=== PATIENT | male | born 1995 | race Caucasian/White ===

== ENCOUNTER 2017-03-04 18:39 | Emergency (ER) | payer BC, OTHER ==
[2017-03-04 18:45] VITALS: TEMP 97.7
[2017-03-04] MEDS ORDERED: ACETAMINOPHEN 325 MG TAB PO ONE (19:05)
--- NOTE | 2017-03-04 19:11 | EDPHY ---
H & P Time Seen by Provider: 03/04/17 18:50 HPI/ROS: CHIEF COMPLAINT: Head injury HISTORY OF PRESENT ILLNESS: 3:15 p.m. today [place] hit his head on the rail. No helmet, no loss of consciousness, no seizure. He felt okay and was checked out by leather skinner but then in the car about 30 minutes later had trouble remembering the name of his friend and had some intermittent numbness in his hands. No neck or back pain and no weakness or numbness in extremities currently. No ataxia. His difficulty remembering the name of his friend lasted between 10 and 20 minutes. Currently has a 7/10 headache which is more a occipital where he hit his head. REVIEW OF SYSTEMS: Eye: no change in vision ENT: no sore throat Cardiac: no chest pain or syncope Pulmonary: no cough or SOB Abdomen: no vomiting, diarrhea, abdominal pain Musculoskeletal: no back pain Skin: Occipital scalp laceration Neuro: HPI Constitutional: no fever : no urinary symptoms A comprehensive 10 point review of systems is otherwise negative aside from elements mentioned in the history of present illness. PAST MEDICAL HISTORY: Negative Family history: Father has hemophilia, he says he has never been tested Social history: No alcohol, college student General Appearance: Alert and conversant, cooperative. Eyes: No scleral icterus. ENT, Mouth: Normal mucous membranes. No hemotympanum. Respiratory: Normal respiratory effort, breath sounds equal, lungs are clear to auscultation. Cardiovascular: Regular rate and rhythm. Gastrointestinal: Abdomen is soft and non tender. Neurological: Alert and oriented x3. Normally conversant. Face symmetric, normal movement and sensation in all extremities. Romberg negative, normal [id number] bilaterally and no pronator drift. Normal tandem gait. Skin: 1 cm left occipital scalp laceration. Musculoskeletal: No spinal tenderness. Psychiatric: Not agitated. Emergency Department course/MDM: Cervical spine cleared clinically. See procedure note for scalp laceration closure. Acetaminophen 650 mg for headache. The [address] scan discussed and consented for head injury with family history of hemophilia and severe headache. 1950: CT head per Fermín negative. Results discussed with the patient. Ibuprofen 600 mg. Mandatory primary care follow-up. Had an episode of nausea and vomiting just prior to discharge, treated successfully with Zofran ODT. Smoking Status: Former smoker Constitutional: Initial Vital Signs Temperature (C) 36.5 C 03/04/17 18:44 Heart Rate 56 L 03/04/17 18:44 Respiratory Rate 18 03/04/17 18:44 Blood Pressure 111/64 03/04/17 18:44 O2 Sat (%) 98 03/04/17 18:44 O2 Delivery Mode Room Air Allergies/Adverse Reactions: Sulfa (Sulfonamide Antibiotics) Allergy (Verified 03/01/15 01:34) ALL CILLINS Allergy (Uncoded 03/01/15 01:34) Home Medications: Medication Instructions Recorded NK [No Known Home Meds] 03/04/17 Medical Decision Making - Diagnostics Imaging Results: Imaging Impressions Head CT 03/04/17 19:05 Impression: Negative noncontrast CT of the head with no intracranial posttraumatic sequela identified. Results called and discussed with BRIANNA BAILEY M.D. on 03/04/2017 at 19:51 Procedures: Procedure: Laceration repair. Verbal consent was obtained from the patient. The 1 cm laceration on the scalp was anesthetized using 0.5% bupivacaine with epinephrine. The wound was irrigated with standard emergency department protocol, draped and explored. There were no deep structures involved. No foreign body found. The wound was repaired with zaira. The wound repair was simple. Excellent hemostasis was obtained. Wound care instructions were discussed and the patient was warned regarding scarring. The procedure was performed by myself. Differential Diagnosis: Differential diagnosis considered for head injury including but not limited to concussion, skull fracture, intraparenchymal contusion, subarachnoid, subdural and epidural hematoma. - Data Points Medications Given: Discontinued Medications Acetaminophen (Tylenol) 650 mg PO EDNOW ONE Stop: 03/04/17 19:06 Last Admin: 03/04/17 19:23 Dose: 650 mg Ibuprofen (Motrin) 600 mg PO EDNOW ONE Stop: 03/04/17 19:52 Last Admin: 03/04/17 20:00 Dose: 600 mg Ondansetron HCl (Zofran Odt) 4 mg PO EDNOW ONE Stop: 03/04/17 19:59 Last Admin: 03/04/17 20:00 Dose: 4 mg Ondansetron HCl (Zofran Odt 4 Mg Prepack#2) 1 btl TAKEHOME EDNOW ONE Stop: 03/04/17 19:59 Last Admin: 03/04/17 20:00 Dose: 1 btl Departure - Departure Disposition: Home, Routine, Self-Care Clinical Impression: Concussion Qualifiers: Encounter type: initial encounter Loss of consciousness presence/duration: without LOC Qualified Code(s): S06.0X0A - Concussion without loss of consciousness, initial encounter Scalp laceration Qualifiers: Encounter type: initial encounter Qualified Code(s): S01.01XA - Laceration without foreign body of scalp, initial encounter Condition: Good Instructions: Ondansetron (By mouth), Laceration (ED), Concussion (ED) Additional Instructions: Wound Care Follow-Up: Removal of sutures/zaira in 7 days. Suture removal is complimentary in uncomplicated cases. Infection or abnormal findings would require reevaluation by the MD. In that case, you may be billed. Normal head CT. Since you likely have a concussion, no skiing or cycling or other potentially contact sports until your symptoms have completely resolved, you been cleared for full activity by follow-up referral physician. Referrals: Jeimy Bennett MD [Medical Doctor] - 5-7 days, call for appt. (Please follow-up this week with referral primary care physician. No skiing or mountain biking or other potentially contact sports activities until cleared for full activity by follow-up physician. Ask her about being tested for hemophilia.)
[2017-03-04] MEDS ORDERED: IBUPROFEN 600 MG TAB PO ONE (19:51)
[2017-03-04] MEDS ORDERED: ONDANSETRON DISINTEGRATING 4 MG TAB PO ONE (19:58)
[2017-03-04] MEDS ORDERED: ONDANSETRON 4MG PREPACK#2 BTL TAKEHOME ONE (19:58)
[2017-03-04 20:07] VITALS: BP 115/74; PULSE 67; RESP 16; O2SAT 95
== END 2017-03-04 20:07 | disposition home or self-care (01) ==
DX: S06.0X0A Concussion without loss of consciousness, initial encounter (principal); S01.01XA Laceration without foreign body of scalp, initial encounter; Z87.891 Personal history of nicotine dependence; W01.198A Fall on same level from slipping, tripping and stumbling with subsequent striking against other object, initial encounter; Y92.838 Other recreation area as the place of occurrence of the external cause; Y99.8 Other external cause status; Y93.89 Activity, other specified

== ENCOUNTER 2017-07-02 00:53 | Emergency (ER) | payer OTHER ==
[2017-07-02 00:57] VITALS: PULSE 64
[2017-07-02] MEDS ORDERED: ONDANSETRON 4 MG/2 ML VIAL IVP ONE (00:57)
[2017-07-02] MEDS ORDERED: HYDROmorphONE/DILAUDID 1 MG/ML INJ IVP ONE (00:57)
[2017-07-02] MEDS ORDERED: NS 1,000 ML IV ONE (00:57)
--- NOTE | 2017-07-02 00:58 | EDPHY ---
H & P Stated Complaint: abd pain HPI/ROS: JOSY YEPEZ HPI CHIEF COMPLAINT abdominal pain HISTORY OF PRESENT ILLNESS This patient very pleasant 21-year-old male, otherwise healthy remote history of seizures, presents emergency room with right lower quadrant periumbilical abdominal pain. States this started around 2 -3 hours ago. It has been constant. Denies any back pain or urinary symptoms. Denies testicular pain or symptoms. He has had nausea with 1 episode of vomiting no diarrhea. Past Medical History: Seizures Past Surgical History: Denies significant surgical history Social History: Denies drugs alcohol tobacco Family History: Noncontributory ROS REVIEW OF SYSTEMS: A comprehensive 10 point review of systems is otherwise negative aside from elements mentioned in the history of present illness. Exam Constitutional triage nursing summary reviewed, vital signs reviewed, awake/ alert. Eyes normal conjunctivae and sclera, EOMI, PERRLA. HENT normal inspection, atraumatic, moist mucus membranes, no epistaxis, neck supple/ no meningismus, no raccoon eyes. Respiratory clear to auscultation bilaterally, normal breath sounds, no respiratory distress, no wheezing. Cardiovascular rate normal, regular rhythm, no murmur, no edema, distal pulses normal. Gastrointestinal tender palpation periumbilical right lower quadrant,, no rebound, no guarding, normal bowel sounds, no distension, no pulsatile mass. Genitourinary no CVA tenderness. Musculoskeletal no midline vertebral tenderness, full range of motion, no calf swelling, no tenderness of extremities, no meningismus, good pulses, neurovascularly intact. Skin pink, warm, & dry, no rash, skin atraumatic. Neurologic awake, alert and oriented x 3, AAOx3, moves all 4 extremities equally, motor intact, sensory intact, CN II-XII intact, normal cerebellar, normal vision, normal speech. Psychiatric normal mood/affect. Heme/Lymph/Immune no lymphadenopathy. Differential Diagnosis: Differential diagnosis includes but is not limited to and in no particular order: Bowel obstruction, appendicitis, gallbladder disease, diverticulitis, colitis, enteritis, perforated viscus, gastritis, GERD , esophagitis, urinary tract infection, pyelonephritis, kidney stones Medical Decision Making: Plan for this patient IV establishment fluid bolus, 0.5 mg IV Dilaudid for pain control Zofran 4 mg for nausea, 1 L normal saline for hydration, check basic blood work, CT scan abdomen pelvis with IV contrast to rule out acute appendicitis. And re-evaluate Re-evaluation: 0154: Patient's blood work is reviewed. Unremarkable CBC and chemistry. Patient is in CT at this time getting a CT scan abdomen pelvis with IV contrast rule out appendicitis. 0211AM: Ct abd/pelvis: Normal appendix, Proximal ileum fluid filled. Enteritis. Trace FF. CT scan abdomen pelvis with IV contrast called to me by Dr. Vela, no evidence of appendicitis. There are is some small bowel loops that are slightly prominent no evidence of SBO. Trace free fluid. Otherwise no acute inflammatory process. Most likely this is enteritis. 0213AM: Re-examination patient is feeling much better. He denies any abdominal pain. He has not any vomiting. He would like to be discharged home. I discussed return precautions with me understands return emergency room if develops worsening abdominal pain fever vomiting. He is agreeable this plan. 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 - Social History Smoking Status: Former smoker Constitutional: Initial Vital Signs Temperature (C) 36.4 C 07/02/17 00:54 Heart Rate 64 07/02/17 00:54 Respiratory Rate 16 07/02/17 00:54 Blood Pressure 120/72 07/02/17 00:54 O2 Sat (%) 98 07/02/17 00:54 O2 Delivery Mode Room Air Allergies/Adverse Reactions: Sulfa (Sulfonamide Antibiotics) Allergy (Verified 07/02/17 00:57) ALL CILLINS Allergy (Uncoded 07/02/17 00:57) Home Medications: Medication Instructions Recorded NK [No Known Home Meds] 03/04/17 Departure - Departure Disposition: Home, Routine, Self-Care Clinical Impression: Abdominal pain Qualifiers: Abdominal location: generalized Qualified Code(s): R10.84 - Generalized abdominal pain Condition: Good Instructions: Acute Abdominal Pain (ED) Additional Instructions: 1. Return emergency room if develops worsening abdominal pain fever vomiting. Referrals: NONE *PRIMARY CARE P,. [Primary Care Provider] - As per Instructions
[2017-07-02] MEDS ORDERED: IOPAMIDOL (ISOVUE-300) 100 ML BTL ONE (01:42)
[2017-07-02 03:24] VITALS: BP 116/62; RESP 18; TEMP 98.2; O2SAT 97
[2017-07-02 03:41] LABS: PLATELET COUNT 287 10^3/uL (150-400)
== END 2017-07-02 02:30 | disposition home or self-care (01) ==
DX: R10.84 Generalized abdominal pain (principal); Z87.891 Personal history of nicotine dependence
CPT/HCPCS: J1170; J2405; Q9967

== ENCOUNTER 2017-07-02 06:32 | Observation (INO) | payer OTHER ==
[2017-07-02 06:39] VITALS: RESP 16
[2017-07-02] MEDS ORDERED: NS 1,000 ML IV ONE (06:39)
[2017-07-02] MEDS ORDERED: HYDROmorphONE/DILAUDID 1 MG/ML INJ IVP ONE (06:39)
[2017-07-02] MEDS ORDERED: ONDANSETRON 4 MG/2 ML VIAL IVP ONE (06:39)
--- NOTE | 2017-07-02 06:39 | EDPHY ---
H & P Stated Complaint: vomiting and abd pain HPI/ROS: HPI CHIEF COMPLAINT: Vomiting and abdominal pain seen here earlier HISTORY OF PRESENT ILLNESS: This patient is a 21-year-old male, presents emergency room with abdominal pain. He was seen here earlier tonight and had extensive workup to include blood work and CT scan. His CT scan not show any evidence of acute appendicitis. Did show most likely enteritis. He felt much better after IV fluids nausea medicine pain medicine and wanted to go home. His blood work at time was reassuring. He was afebrile with stable vital signs. He states that he felt comfortable for about 3-4 hours however then woke up again with ongoing mid abdominal pain with associated nausea and he vomited 1 more time. This makes a total count of 2 episodes of vomiting. Denies any urinary symptoms or pain. Eyes testicular pain or back pain the pain is located mid abdomen sharp stabbing. This initially started at 10:00 p.m. last night. He has had a bowel movement. He does report to me about 2 months ago he was on antibiotics for an ear infection had diarrhea but that subsided. No recent diarrhea. Past Medical History: Denies significant medical history except for seizures Past Surgical History: Denies surgical history Social History: Denies drugs alcohol tobacco. Family History: Noncontributory ROS REVIEW OF SYSTEMS: A comprehensive 10 point review of systems is otherwise negative aside from elements mentioned in the history of present illness. Exam Constitutional appears on toxic triage nursing summary reviewed, vital signs reviewed, awake/alert. Eyes normal conjunctivae and sclera, EOMI, PERRLA. HENT normal inspection, atraumatic, moist mucus membranes, no epistaxis, neck supple/ no meningismus, no raccoon eyes. Respiratory clear to auscultation bilaterally, normal breath sounds, no respiratory distress, no wheezing. Cardiovascular rate normal, regular rhythm, no murmur, no edema, distal pulses normal. Gastrointestinal mild tenderness palpation periumbilical mid abdomen, certainly no peritoneal signs no rebound, no guarding, normal bowel sounds, no distension, no pulsatile mass. Genitourinary no CVA tenderness. Musculoskeletal no midline vertebral tenderness, full range of motion, no calf swelling, no tenderness of extremities, no meningismus, good pulses, neurovascularly intact. Skin pink, warm, & dry, no rash, skin atraumatic. Neurologic awake, alert and oriented x 3, AAOx3, moves all 4 extremities equally, motor intact, sensory intact, CN II-XII intact, normal cerebellar, normal vision, normal speech. Psychiatric normal mood/affect. Heme/Lymph/Immune no lymphadenopathy. Differential diagnosis includes but is not limited to and in no particular order : Bowel obstruction, appendicitis, gallbladder disease, diverticulitis, colitis , enteritis, perforated viscus, gastritis, GERD, esophagitis, urinary tract infection, pyelonephritis, kidney stones Medical Decision Making: Plan for this patient will status an IV again, IV fluid bolus, 0.5 mg IV Dilaudid for pain control 4 mg IV Zofran for nausea check basic blood work including lactic, will plan on admitting for observation today due to ongoing abdominal pain. I did review his previous blood work and CT scan. Re-evaluation: 0647: CT scan and blood work reviewed from previous ER visit. Normal appendix. Loop of enteritis. No evidence small-bowel obstruction. I do not feel this patient needs to be reimaged. However will recheck his basic blood work including CBC, lactic and chemistry. Will admit to the hospitalist service for observation today. If his abdominal exam gets worse or continues on further vomiting or severe abdominal pain may need reimaging or surgical consult. Spoke with Dr. Borges who agrees to admit. Will additionally check UA. 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 - Social History Smoking Status: Former smoker Constitutional: Initial Vital Signs Temperature (C) 36.3 C 07/02/17 06:37 Heart Rate 54 L 07/02/17 06:37 Respiratory Rate 16 07/02/17 06:37 Blood Pressure 123/66 H 07/02/17 06:37 O2 Sat (%) 93 07/02/17 06:37 O2 Delivery Mode Room Air Allergies/Adverse Reactions: Penicillins Allergy (Verified 07/02/17 08:29) Hives Sulfa (Sulfonamide Antibiotics) Allergy (Verified 07/02/17 08:29) Hives Home Medications: Medication Instructions Recorded Acetaminophen [Tylenol 325mg (*)] 325 mg PO Q6 PRN 07/02/17 Ondansetron Odt [Zofran Odt 4 mg 4 mg PO Q4HRS PRN #40 tab 07/02/17 (*)] Sennosides/Docusate Sodium 1 - 2 tab PO BID tab 07/02/17 [Senokot-S] Medical Decision Making - Data Points Laboratory Results: Laboratory Results 07/02/17 06:55 07/02/17 06:55 Medications Given: Discontinued Medications Enoxaparin Sodium (Lovenox) 40 mg SC DAILY [facility] Stop: 12/29/17 08:59 Last Admin: 07/02/17 10:21 Dose: 40 mg Hydromorphone HCl (Dilaudid) 0.5 mg IVP EDNOW ONE Stop: 07/02/17 06:40 Last Admin: 07/02/17 06:46 Dose: 0.5 mg Sodium Chloride (Ns) 1,000 mls @ 0 mls/hr IV EDNOW ONE; Wide Open PRN Reason: Protocol Stop: 07/02/17 06:40 Last Admin: 07/02/17 06:46 Dose: 1,000 mls Lactated Ringer's (Lr) 1,000 mls @ 150 mls/hr IV CONT DEEPIKA Stop: 12/29/17 08:59 Last Admin: 07/02/17 09:55 Dose: 1,000 mls Influenza Virus Vaccine Quadrival (Fluarix Quad [id number]) 0.5 ml IM .ONCE ONE Stop: 07/02/17 17:40 Last Admin: 07/02/17 17:56 Dose: 0.5 ml Ketorolac Tromethamine (Toradol) 30 mg IVP ONCE ONE Stop: 07/02/17 08:24 Last Admin: 07/02/17 08:28 Dose: 30 mg Ketorolac Tromethamine (Toradol) 15 - 30 mg IVP Q6HRS PRN PRN Reason: Pain, Inflammatory Stop: 07/07/17 11:59 Last Admin: 07/02/17 12:08 Dose: 15 mg Morphine Sulfate (Morphine) 0.5 - 2 mg IVP Q2 PRN PRN Reason: Pain, Severe Unable to Take PO Stop: 07/12/17 08:32 Last Admin: 07/02/17 09:55 Dose: 2 mg Ondansetron HCl (Zofran) 4 mg IVP EDNOW ONE Stop: 07/02/17 06:40 Last Admin: 07/02/17 06:46 Dose: 4 mg Ondansetron HCl (Zofran) 4 mg IVP Q4HRS PRN PRN Reason: Nausea/Vomiting, Can't Take PO Stop: 12/29/17 08:32 Last Admin: 07/02/17 09:55 Dose: 4 mg Senna/Docusate Sodium (Senokot-S) 1 - 2 tab PO BID DEEPIKA PRN Reason: Protocol Stop: 12/29/17 09:59 Last Admin: 07/02/17 10:22 Dose: 2 tab Departure - Departure Disposition: [facility] Inpatient Acute Clinical Impression: Abdominal pain Qualifiers: Abdominal location: generalized Qualified Code(s): R10.84 - Generalized abdominal pain Condition: Good
[2017-07-02 06:59] LABS: PLATELET COUNT 267 10^3/uL (150-400)
[2017-07-02] MEDS ORDERED: KETOROLAC 30 MG/1 ML SDV IVP ONE (08:23)
[2017-07-02] MEDS ORDERED: KETOROLAC 30 MG/1 ML SDV ONE (08:25)
[2017-07-02] MEDS ORDERED: PROMETHAZINE HCL 25 MG/ML INJ IVP PRN (08:33)
[2017-07-02] MEDS ORDERED: ONDANSETRON DISINTEGRATING 4 MG TAB PO PRN (08:33)
[2017-07-02] MEDS ORDERED: ACETAMINOPHEN 325 MG TAB PO PRN (08:33)
[2017-07-02] MEDS ORDERED: PROMETHAZINE HCL 25 MG TAB PO PRN (08:33)
[2017-07-02] MEDS ORDERED: ONDANSETRON 4 MG/2 ML VIAL IVP PRN (08:33)
[2017-07-02] MEDS ORDERED: LR 1,000 ML IV SCH (09:00)
[2017-07-02] MEDS ORDERED: ENOXAPARIN 40 MG/0.4 ML SYR SC SCH (09:00)
[2017-07-02] MEDS ORDERED: LACTULOSE 20 GM/30 ML UDCUP PO PRN (09:50)
[2017-07-02] MEDS ORDERED: KETOROLAC 15 MG/1 ML SDV IVP PRN (09:50)
[2017-07-02] MEDS ORDERED: BISACODYL 10 MG SUPP PR PRN (09:50)
[2017-07-02] MEDS ORDERED: MAGNESIUM HYDROXIDE 30 ML UDCUP PO PRN (09:50)
[2017-07-02] MEDS ORDERED: POLYETHYLENE GLYCOL 3350 17 GM PKT PO PRN (09:50)
--- NOTE | 2017-07-02 09:55 | PDGENHP ---
History and Physical - Chief Complaint Acute abdominal pain - History of Present Illness PCP: None HPI: 21 yo M p/w acute abdominal pain located in the mid-lower anterior abdomen , characterized as sharp and nauseating, w/ onset of symptoms at 10 p.m. on 07/01, duration persistent thereafter. Patient reports that he had previously been in his usual state of health and had not been experiencing any symptoms prior to the evening of onset. He engaged in his normal weekend activities which included doing ecstasy on Saturday evening, drinking a moderate amount of alcohol on Saturday evening, and feeling relatively well on Saturday. He did not feel particularly ill or hung over on Saturday or Saturday. He reports eating processed foods on Saturday, including thin mints for dinner. He denies any sushi or raw meats. He reports that the pain was the initial symptom, and he subsequently experienced nausea and some resultant associated vomiting. His emesis was nonbloody, brown/green, and was of moderate volume on the 1st 2 episodes. He presented to the emergency department where he had mild leukocytosis, normal creatinine level, normal lipase level, CT demonstrating some small bowel enteritis and no obstruction. His symptoms were alleviated with IV fluids, pain medications and antiemetics, and he was discharged home. His symptoms returned, and he re-presented to the emergency department. History Information - Allergies/Home Medication List Allergies/Adverse Reactions: Penicillins Allergy (Verified 07/02/17 08:29) Hives Sulfa (Sulfonamide Antibiotics) Allergy (Verified 07/02/17 08:29) Hives Home Medications: Acetaminophen [Tylenol 325mg (*)] 325 mg PO Q6 PRN 07/02/17 [Last Taken 07/01/17 ] I have personally reviewed and updated: family history, medical history, social history, surgical history - Past Medical History Additional medical history: Reported seizure disorder beginning in 6th grade, reportedly nocturnal seizures, placed on antiepileptic medications for 2 years, taken off in 8th grade, has not had any recurrent seizures that he is aware of. close head injury twice while engaging in winter sports - Surgical History Reports: no pertinent surgical hx - Family History Additional family history: No family history of inflammatory bowel disease - Social History Smoking Status: Former smoker Alcohol Use: Occasionally (Patient reports that he drinks a moderate to heavy amount of alcohol 1 time per weekend) Drug Use: Marijuana (Daily basis), Other (He utilizes ecstasy or mushrooms once a month) Additional social history: College student, normally independent in his ADLs Review of Systems Review of Systems: ROS: 10pt was reviewed & negative except for what was stated in HPI & below Gastrointestinal: Reports: vomitting, abdominal pain, constipation (X2 days), nausea Physical Exam Physical Exam: Temp Pulse Resp BP Pulse Ox 36.4 C 54 L 16 134/88 H 98 07/02/17 09:16 07/02/17 09:16 07/02/17 09:16 07/02/17 09:16 07/02/17 09:16 Constitutional: appears nourished, uncomfortable, No not in pain (Moderate), No chronically ill appearing Eyes: PERRL, anicteric sclera, EOMI Ears, Nose, Mouth, Throat: moist mucous membranes, hearing normal, ears appear normal, no oral mucosal ulcers Cardiovascular: regular rate and rhythym, no murmur, rub, or gallop, No edema Respiratory: no respiratory distress, no rales or rhonchi, clear to auscultation Gastrointestinal: tenderness (In the mid abdomen and suprapubic area), guarding (Voluntary in the suprapubic area), No normoactive bowel sounds (Hypoactive bowel sounds), No distension Genitourinary: other (No CVA tenderness, suprapubic tender) Skin: warm, No abrasion, No rash Neurologic: AAOx3, sensation intact bilaterally, No weakness Psychiatric: not anxious, not encephalopathic, flat affect, No agitated Lab Data & Imaging Review 07/02/17 06:55 07/02/17 06:55 WBC 9.70 10^3/uL (3.80-9.50) H 07/02/17 06:55 RBC 5.29 10^6/uL (4.40-6.38) 07/02/17 06:55 Hgb 16.8 g/dL (13.7-17.5) 07/02/17 06:55 Hct 46.8 % (40.0-51.0) 07/02/17 06:55 MCV 88.5 fL (81.5-99.8) 07/02/17 06:55 MCH 31.8 pg (27.9-34.1) 07/02/17 06:55 MCHC 35.9 g/dL (32.4-36.7) 07/02/17 06:55 RDW 12.0 % (11.5-15.2) 07/02/17 06:55 Plt Count 267 10^3/uL (150-400) 07/02/17 06:55 MPV 9.0 fL (8.7-11.7) 07/02/17 06:55 Neut % (Auto) 79.0 % (39.3-74.2) H 07/02/17 06:55 Lymph % (Auto) 16.4 % (15.0-45.0) 07/02/17 06:55 Jackson % (Auto) 3.8 % (4.5-13.0) L 07/02/17 06:55 Eos % (Auto) 0.1 % (0.6-7.6) L 07/02/17 06:55 Baso % (Auto) 0.3 % (0.3-1.7) 07/02/17 06:55 Nucleat RBC Rel Count 0.0 % (0.0-0.2) 07/02/17 06:55 Absolute Neuts (auto) 7.66 10^3/uL (1.70-6.50) H 07/02/17 06:55 Absolute Lymphs (auto) 1.59 10^3/uL (1.00-3.00) 07/02/17 06:55 Absolute Monos (auto) 0.37 10^3/uL (0.30-0.80) 07/02/17 06:55 Absolute Eos (auto) 0.01 10^3/uL (0.03-0.40) L 07/02/17 06:55 Absolute Basos (auto) 0.03 10^3/uL (0.02-0.10) 07/02/17 06:55 Absolute Nucleated RBC 0.00 10^3/uL (0-0.01) 07/02/17 06:55 Immature Gran % 0.4 % (0.0-1.1) 07/02/17 06:55 Immature Gran # 0.04 10^3/uL (0.00-0.10) 07/02/17 06:55 VBG Lactic Acid 1.8 mmol/L (0.7-2.1) 07/02/17 06:55 Sodium 138 mEq/L (135-145) 07/02/17 06:55 Potassium 4.1 mEq/L (3.5-5.2) 07/02/17 06:55 Chloride 101 mEq/L (97-110) 07/02/17 06:55 Carbon Dioxide 24 mEq/l (22-31) 07/02/17 06:55 Anion Gap 13 mEq/L (8-16) 07/02/17 06:55 BUN 13 mg/dL (7-23) 07/02/17 06:55 Creatinine 0.9 mg/dL (0.7-1.3) 07/02/17 06:55 Estimated GFR > 60 07/02/17 06:55 Glucose 133 mg/dL (70-100) H 07/02/17 06:55 Calcium 9.7 mg/dL (8.5-10.4) 07/02/17 06:55 Assessment & Plan Assessment: 21-year-old male presents with acute abdominal pain/vomiting in setting of suspected viral gastroenteritis Plan: # Suspected viral gastroenteritis. Acute, new problem, further w/u indicated. Evidenced by CT w/ area of small bowel inflammation + mild leukocytosis + abd Sx , w/o clear precipitating oral ingestion precipitant which would suggest bacterial origin - reviewed outside records including 07/02/[address] Ken Dubois rom 02:11, indicating that the CT scan did NOT show appendicitis or SBO, lipase wnl, WBC 9K - get CT uploaded to [facility] in case further evaluation w/ imaging indicated - patient failed outpt supportive care, requiring IVF + IV anti-emetics/pain Rx - bowel rest, clears - get UA to r/o UTI given physical exam findings - place on bowel regimen to prevent constipation from worsening Sx - encouraged patient to take hot shower in case daily THC use contributing to Sx - repeat labs in AM # Reported seizure disorder. 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 No e/o withdraw, do not suspect that his prior ingestants related to above - encourage responsible drinking, reduction in drug use - encourage patient to establish care w/ either [place] or PCP Diet. Clears PPx. High risk given immobility, SCDs, / lovenox Code. Full Dispo. ADD 07/03, pending resolution of above w/ supportive care. Discussed w/ Dr. Justa Borges, she has signed patient out to me for evaluation at shift change.
[2017-07-02] MEDS ORDERED: SENNOSIDES/DOCUSATE SODIUM TAB PO SCH (10:00)
--- NOTE | 2017-07-02 14:46 | ASMTCASEMG ---
Living Arrangements What is your living Answers: With Other (Not Family) arrangement? Who do you live with? Type Of Residence What kind of residence do Answers: Apartment you live in? Discharge Plan Comments Coordination Status Comments Notes: Pt is a 21 y/o man admitted for acute abdominal pain. Pt is a college student. Pt will most likely d/c without any needs when medically stable. No therapies ordered at this time. CM available for changes. Plan: Independent Date Signed: 07/02/2017 02:46 PM Electronically Signed By:LUCINDA Petersen
[2017-07-02 15:57] VITALS: BP 112/68; PULSE 52; TEMP 97.8; O2SAT 97
--- NOTE | 2017-07-02 17:38 | PDDCSUM ---
Discharge Summary Discharge Summary: Discharge diagnoses: 1. Acute viral gastroenteritis 2. Polysubstance abuse Hospital course: The patient responded to supportive care with IV fluids, bowel rest, as needed antiemetics and pain medications. The patient's diet was advanced from clear liquids to bland solids without any issues, and his abdominal pain and nausea abated. The patient is requesting discharge home at this time, and I believe this safe to discharge him with as needed antiemetics. I recommended that the patient establish primary care and reasonable contact information was provided. I recommended that he discuss his ongoing substance abuse issues with his new primary care provider. Discharge medications: Please see official discharge medication reconciliation sheet in chart, of note patient shall receive a prescription for 40 tabs of as- needed Zofran. Discharge instructions: Please schedule follow-up with Dr. Kolton Gan.
[2017-07-02] MEDS ORDERED: FLU VACC QS 2017-18 (3YR+)/PF 0.5 ML SYR (FLUARIX QUAD) IM ONE (17:39)
== END 2017-07-02 18:15 | disposition home or self-care (01) ==
LOC: F3E 08:35
PROVIDERS: ADMIT Family Medicine; ATTEND Family Medicine
DX: A08.39 Other viral enteritis (principal); F19.10 Other psychoactive substance abuse, uncomplicated
CPT/HCPCS: 90471; G0378; 96374; G0008; J1170; J1650; J1885; J2270; J2405